=== PATIENT | male | born 1975 | race Caucasian/White ===

== ENCOUNTER 2016-11-12 14:45 | Outpatient (CLI) | payer BC ==
--- NOTE | 2016-11-13 08:51 | MRI Report ---
EXAM: RIGHT FOREFOOT MRI WITHOUT CONTRAST EXAM DATE: 11/12/2016 03:15 PM. CLINICAL HISTORY: SESAMOIDITIS. RT SESAMOID BONE PAIN AT BASE OF RT GREAT TOE SINCE FEB 2016; NO KNO WN INJURY. COMPARISON: None. TECHNIQUE: Multiplanar, multisequence T1-weighted and fluid-sensitive sequences of the forefoot witho ut contrast. Other: None. FINDINGS: Bones: No fractures. Diffuse marrow edema in the sesamoids of the great toe, medial worse than latera l. No bone lesions. Joints: No subluxations. Mild effusion in the phalangeal sesamoid joint. Mild osteoarthritis of the f irst MTP joint and the wagzin-asajgfxw-mvdejppeen complex with small osteophytes and joint space narr owing. The visualized plantar plates are unremarkable. Articular Cartilage: Cartilaginous thinning in the phalangeal sesamoid joint. Ligaments: The visualized collateral ligaments are intact. Tendons: The flexor and extensor tendons are unremarkable. Musculature: Diffuse edema in the distal part of the medial head of the flexor hallucis brevis. No fa tty atrophy. Other: No intermetatarsal bursitis. The subcutaneous tissues are unremarkable. IMPRESSION: 1. Diffuse marrow edema in the sesamoids of the great toe, medial worse than lateral, consistent sesa moiditis, can be due to contusion or reactive to mechanical stress. 2. Mild osteoarthritis of the first MTP joint and the zjxfew-eikhjxpc-mftvhshwrs complex with small o steophytes and joint space narrowing. Cartilaginous thinning and mild effusion in the phalangeal sesa moid joint. 3. Diffuse edema in the distal part of the medial head of the flexor hallucis brevis, can be due to m uscular strain or mild partial thickness tear in the musculotendinous junction. [facility] MUSCULOSKELETAL RADIOLOGY SECTION Referring Provider Line: [phone] SITE ID: [id number]
== END 2016-11-12 14:46 | disposition home or self-care (01) ==
LOC: DI 14:45
PROVIDERS: ATTEND Podiatrist
DX: M25.80 Other specified joint disorders, unspecified joint (principal); M19.071 Primary osteoarthritis, right ankle and foot